=== PATIENT | male | born 1990 | race Caucasian/White ===

== ENCOUNTER 2017-05-25 01:41 | Emergency (ER) | payer SELFPAY ==
[2017-05-25 01:52] VITALS: BP 164/91
[2017-05-25] MEDS ORDERED: Ketorolac 60 MG/2 ML SDV IM ONE (02:04)
[2017-05-25] MEDS ORDERED: cefTRIAXone 1 GM, Lidocaine 1% 2.1 ML IM ONE ×2 (02:05)
--- NOTE | 2017-05-25 02:11 | EDM.PDOC ---
ED HPI GENERAL MEDICAL PROBLEM - General Chief Complaint: ENT Problem Stated Complaint: ABSESS TOOTH/UPPER LT SIDE Time Seen by Provider: 05/25/17 02:05 Source of Information: Reports: Patient History Limitations: Reports: No Limitations - History of Present Illness INITIAL COMMENTS - FREE TEXT/NARRATIVE: pt arrived with severe dental pain from a molar in the left upper gum line. Onset: Other ( past several days. ) Duration: Day(s):, Getting Worse Location: Reports: Face Associated Symptoms: Reports: No Other Symptoms Left Face Pain Score (Numeric/FACES): 10 - Related Data Allergies Allergy/AdvReac Type Severity Reaction Status Date / Time No Known Allergies Allergy Verified 05/25/17 01:49 Home Meds: Home Meds Ibuprofen [Advil] 05/25/17 [History] Past Medical History Musculoskeletal History: Reports: Fracture Other Musculoskeletal History: acl repair. gout Social & Family History - Tobacco Use Smoking Status *Q: Never Smoker - Caffeine Use Caffeine Use: Reports: Coffee, Energy Drinks, Soda - Recreational Drug Use Recreational Drug Use: No ED ROS ENT - Review of Systems Review Of Systems: See Below Constitutional: Reports: No Symptoms HEENT: Reports: No Symptoms, Dental Pain Respiratory: Reports: No Symptoms Cardiovascular: Reports: No Symptoms Endocrine: Reports: No Symptoms GI/Abdominal: Reports: No Symptoms : Reports: No Symptoms ED EXAM, ENT - Physical Exam Exam: See Below Text/Narrative:: Pt has had pain in a molar in the left upper gum line. He has had pain for the pst 2-3 days. Exam Limited By: No Limitations General Appearance: Alert, Anxious, Moderate Distress Ears: Normal TMs Nose: Normal Inspection Mouth/Throat: Other (pt has a carious tooth in the left upper gum line. This is very tender. ) Head: Atraumatic Neck: Lymphadenopathy (L) Respiratory/Chest: No Respiratory Distress Cardiovascular: Regular Rate, Rhythm GI/Abdominal: Soft, Non-Tender (Male) Exam: Deferred Rectal (Males) Exam: Normal Exam Back: Normal Inspection Course - Vital Signs Last Recorded V/S: Last Vital Signs Temp 38.2 C H 05/25/17 01:52 Pulse 85 05/25/17 01:52 Resp 18 05/25/17 01:52 BP 164/91 H 05/25/17 01:52 Pulse Ox 96 05/25/17 01:52 - Orders/Labs/Meds Orders: Active Orders 24 hr Category Date Time Status cefTRIAXone 1 GM,Lidocaine 1% 2.1 ML Med 05/25/17 02:05 Ordered cefTRIAXone [Rocephin] 1 gm Lidocaine 1% [Xylocaine-MPF 1%] 2.1 ml IM ONETIME Medication Orders Ketorolac Tromethamine (Toradol) 60 mg IM ONETIME ONE Stop: 05/25/17 02:05 Meds: Medications Generic Name Dose Route Start Last Admin Trade Name Rob PRN Reason Stop Dose Admin Ketorolac Tromethamine 60 mg 05/25/17 02:04 Toradol IM 05/25/17 02:05 ONETIME ONE - Re-Assessments/Exams Free Text/Narrative Re-Assessment/Exam: 05/25/17 02:09 pt was give a gm of rocephen and 60 mg or tordol. Departure - Departure Time of Disposition: 02:09 Disposition: Home, Self-Care 01 Condition: Fair Clinical Impression: Dental abscess - Discharge Information Referrals: PCP,None [Primary Care Provider] - Care Plan Goals: amoxicillin 500mg qid, motrin 600mg qid, norco 5/325 q6h prn for pain # 10, dental referal thursday . - My Orders Last 24 Hours: My Active Orders 05/25/17 02:05 cefTRIAXone 1 GM,Lidocaine 1% 2.1 ML cefTRIAXone [Rocephin] 1 gm Lidocaine 1% [ Xylocaine-MPF 1%] 2.1 ml IM ONETIME - Assessment/Plan Last 24 Hours: My Active Orders 05/25/17 02:05 cefTRIAXone 1 GM,Lidocaine 1% 2.1 ML cefTRIAXone [Rocephin] 1 gm Lidocaine 1% [ Xylocaine-MPF 1%] 2.1 ml IM ONETIME
== END 2017-05-25 02:24 | disposition home or self-care (01) ==
LOC: JP.ED 01:41
DX: K04.7 Periapical abscess without sinus (principal)
CPT/HCPCS: 96372; 99283; J0696; J1885